=== PATIENT | female | born 1995 | race Caucasian/White ===

== ENCOUNTER 2017-11-18 13:15 | Emergency (ER) | payer BC ==
--- NOTE | 2017-11-18 13:18 | EDM.PDOC ---
ED HPI GENERAL MEDICAL PROBLEM - General Chief Complaint: General Stated Complaint: RIGHT ANKLE PAIN Time Seen by Provider: 11/18/17 13:17 Source of Information: Reports: Patient History Limitations: Reports: No Limitations - History of Present Illness INITIAL COMMENTS - FREE TEXT/NARRATIVE: This patient is a 22 year old female that presents to the ER. Patient reports that she was having a republican last night and showing off for friends raising her leg up in the air while standing. She reports the injury occurred early this morning. She reports one her friends grabbed a hold of her foot, she lost footing, and her right foot twisted inward. Patient reports having right lateral foot pain. Pulses +2, cap refill <2 sec, sensory/motor function intact. Neurovascular intact. Denies other injury. Onset Date: 11/18/17 Onset Time: 02:00 Location: Reports: Lower Extremity, Right Front/Back Body Image: 1 - pain, tenderness, swelling, eccyhmosis. Quality: Reports: Ache Severity: Mild Improves with: Reports: Immobilization Worsens with: Reports: Movement Associated Symptoms: Reports: No Other Symptoms. Denies: Confusion, Chest Pain , Cough, cough w sputum, Diaphoresis, Fever/Chills, Headaches, Loss of Appetite , Malaise, Nausea/Vomiting, Rash, Seizure, Shortness of Breath, Syncope, Weakness Right Ankle Pain Score (Numeric/FACES): 4 - Related Data Allergies Allergy/AdvReac Type Severity Reaction Status Date / Time No Known Allergies Allergy Verified 11/18/17 13:24 Home Meds: Home Meds . [No Known Home Meds] 11/18/17 [History] ED ROS GENERAL - Review of Systems Review Of Systems: See Below Constitutional: Reports: No Symptoms HEENT: Reports: No Symptoms Respiratory: Reports: No Symptoms Cardiovascular: Reports: No Symptoms Endocrine: Reports: No Symptoms GI/Abdominal: Reports: No Symptoms : Reports: No Symptoms Musculoskeletal: Reports: Foot Pain (right lateral) Skin: Reports: No Symptoms Neurological: Reports: No Symptoms Psychiatric: Reports: No Symptoms Hematologic/Lymphatic: Reports: No Symptoms Immunologic: Reports: No Symptoms ED EXAM, GENERAL - Physical Exam Exam: See Below Exam Limited By: No Limitations General Appearance: Alert, WD/WN, No Apparent Distress Head: Atraumatic, Normocephalic Respiratory/Chest: No Respiratory Distress, Lungs Clear, Normal Breath Sounds, No Accessory Muscle Use Cardiovascular: Normal Peripheral Pulses, Regular Rate, Rhythm, No Edema, No Gallop, No JVD, No Murmur, No Rub Peripheral Pulses: 2+: Posterior Tibial (L), Posterior Tibial (R), Dorsalis Pedis (L), Dorsalis Pedis (R) Extremities: Normal Range of Motion, No Pedal Edema, Normal Capillary Refill, Other (Pain, tenderness, swelling, eccyhmosis right lateral foot along 5th mid shaft metatarsal. ) Course - Vital Signs Last Recorded V/S: Last Vital Signs Temp 98.6 F 11/18/17 13:24 Pulse 72 11/18/17 13:24 Resp 18 11/18/17 13:24 BP 155/90 H 11/18/17 13:24 Pulse Ox 97 11/18/17 13:24 - Orders/Labs/Meds Orders: Active Orders 24 hr Category Date Time Status Foot Comp Min 3V Rt [CR] Stat Exams 11/18/17 13:17 Taken - Radiology Interpretation Free Text/Narrative:: Xray right foot: Fracture 5th proximal metatarsal Departure - Departure Time of Disposition: 14:05 Disposition: Home, Self-Care 01 Condition: Good Clinical Impression: Fracture of metatarsal of right foot, closed Qualifiers: Encounter type: initial encounter Metatarsal bone: fifth Fracture alignment: displaced Qualified Code(s): S92.351A - Displaced fracture of fifth metatarsal bone, right foot, initial encounter for closed fracture - Discharge Information Instructions: Metatarsal Fracture Referrals: Provider,Unknown [Primary Care Provider] - Forms: ED Department Discharge Additional Instructions: Followup with your primary care provider Followup with orthopedic Return to the ER for worsening of condition or any emergent concerns Rest Ice Elevate Walking boot Weight bearing as tolerated IbuProfen as needed for pain and swelling - My Orders Last 24 Hours: My Active Orders 11/18/17 13:17 Foot Comp Min 3V Rt [CR] Stat - Assessment/Plan Last 24 Hours: My Active Orders 11/18/17 13:17 Foot Comp Min 3V Rt [CR] Stat Plan: PLEASE SEE RN NOTE FOR PFSH.
== END 2017-11-18 14:10 | disposition home or self-care (01) ==
LOC: CC.ED 13:15
DX: S92.351A Displaced fracture of fifth metatarsal bone, right foot, initial encounter for closed fracture (principal); X50.1XXA Overexertion from prolonged static or awkward postures, initial encounter
CPT/HCPCS: 73630-RT; 99283

== ENCOUNTER 2018-02-15 20:11 | Emergency (ER) | payer OTHER, BC ==
--- NOTE | 2018-02-15 20:56 | EDM.PDOC ---
ED HPI GENERAL MEDICAL PROBLEM - General Chief Complaint: Lower Extremity Injury/Pain Stated Complaint: L)KNEE INJURY Time Seen by Provider: 02/15/18 20:54 Source of Information: Reports: Patient History Limitations: Reports: No Limitations - History of Present Illness INITIAL COMMENTS - FREE TEXT/NARRATIVE: This patient is a 23 year old female that presents to the ER. Patient reports she was working at the [employer], was walking and twisting her left knee. Patient denies any other pain. Patient reports pain to the left knee. Onset: Today Duration: Hour(s): (2) Location: Reports: Lower Extremity, Left Quality: Reports: Ache Severity: Mild Improves with: Reports: Immobilization Worsens with: Reports: Movement Associated Symptoms: Reports: No Other Symptoms. Denies: Confusion, Chest Pain , cough w sputum, Diaphoresis, Fever/Chills, Headaches, Loss of Appetite, Malaise, Nausea/Vomiting, Rash, Seizure, Shortness of Breath, Syncope, Weakness Left Knee Pain Score (Numeric/FACES): 9 - Related Data Allergies Allergy/AdvReac Type Severity Reaction Status Date / Time No Known Allergies Allergy Verified 02/15/18 20:21 Home Meds: Home Meds . [No Known Home Meds] 11/18/17 [History] Past Medical History - Past Health History Medical/Surgical History: Denies Medical/Surgical History - Past Surgical History Musculoskeletal Surgical History: Reports: Knee Replacement Social & Family History - Family History Family Medical History: Noncontributory - Tobacco Use Smoking Status *Q: Never Smoker - Caffeine Use Caffeine Use: Reports: None - Recreational Drug Use Recreational Drug Use: No Review of Systems - Review of Systems Review Of Systems: See Below Constitutional: Reports: No Symptoms Eyes: Reports: No Symptoms Ears: Reports: No Symptoms Nose: Reports: No Symptoms Mouth/Throat: Reports: No Symptoms Respiratory: Reports: No Symptoms Cardiovascular: Reports: No Symptoms GI/Abdominal: Reports: No Symptoms Genitourinary: Reports: No Symptoms Musculoskeletal: Reports: Joint Pain (left knee pain) Skin: Reports: No Symptoms Neurological: Reports: No Symptoms Psychiatric: Reports: No Symptoms ED EXAM, GENERAL - Physical Exam Exam: See Below Exam Limited By: No Limitations General Appearance: Alert, WD/WN, No Apparent Distress Respiratory/Chest: No Respiratory Distress, Lungs Clear, Normal Breath Sounds, No Accessory Muscle Use Cardiovascular: Normal Peripheral Pulses, Regular Rate, Rhythm, No Edema, No Gallop, No JVD, No Murmur, No Rub Peripheral Pulses: 2+: Popliteal (L), Popliteal (R), Posterior Tibial (L), Posterior Tibial (R) Extremities: Normal Inspection, Normal Range of Motion, No Pedal Edema, Normal Capillary Refill, Other (Pain, tenderness left anterior medial and lateral aspect of knee. ). No: Limited Range of Motion Neurological: Alert, Oriented Psychiatric: Normal Affect, Normal Mood Skin Exam: Warm, Dry, Intact, Normal Color, No Rash Course - Vital Signs Last Recorded V/S: Last Vital Signs Temp 98.4 F 02/15/18 20:12 Pulse 72 02/15/18 20:12 Resp 20 02/15/18 20:12 BP 142/93 H 02/15/18 20:12 Pulse Ox 99 02/15/18 20:12 - Orders/Labs/Meds Orders: Active Orders 24 hr Category Date Time Status Knee 3V Lt [CR] Stat Exams 02/15/18 20:25 Taken - Radiology Interpretation Free Text/Narrative:: Left knee: No fx. Previous hardware possible ACL repair. No dislocation Departure - Departure Time of Disposition: 20:54 Disposition: Home, Self-Care 01 Condition: Good Clinical Impression: Sprain of knee - Discharge Information *PRESCRIPTION DRUG MONITORING PROGRAM REVIEWED*: No *COPY OF PRESCRIPTION DRUG MONITORING REPORT IN PATIENT BILL: No Instructions: Crutch Use, Adult, [id number], How to Use a Knee Brace, Knee Sprain, Adult Referrals: PCP,None [Primary Care Provider] - Forms: ED Department Discharge Additional Instructions: Followup with primary care provider Followup with your orthopedic if pain continues Rest Ice Elevate Knee Brace Crutches No weight bearing initially, may bear weight as tolerate IbuProfen OTC as needed for pain - My Orders Last 24 Hours: My Active Orders 02/15/18 20:25 Knee 3V Lt [CR] Stat - Assessment/Plan Last 24 Hours: My Active Orders 02/15/18 20:25 Knee 3V Lt [CR] Stat Plan: PLEASE SEE RN NOTE FOR PFSH.
== END 2018-02-15 21:00 | disposition home or self-care (01) ==
LOC: CC.ED 20:11
DX: S83.92XA Sprain of unspecified site of left knee, initial encounter (principal); X50.9XXA Other and unspecified overexertion or strenuous movements or postures, initial encounter; Y99.0 Civilian activity done for income or pay
CPT/HCPCS: 73562-LT; 99283